=== PATIENT | male | born 1965 | race African-American/Black ===

== ENCOUNTER 2021-12-01 06:17 | Inpatient (IN) ==
[2021-12-01] MEDS ORDERED: ASPIRIN 325 MG TABLET PO STA (06:42)
[2021-12-01] MEDS ORDERED: FUROSEMIDE 40 MG/4 ML VIAL IV STA (06:42)
[2021-12-01] MEDS ORDERED: hydrALAZINE 20 MG/1 ML VIAL IV STA (06:42)
[2021-12-01 06:52] LABS: Basophils % 0.6 % (0.0-0.8); Eosinophils % 0.2 % (0.00-10.9); Hemoglobin 14.6 GM/DL (14.0-18.0); Immature Granulocytes % 0.6 %; Immature Granulocytes Absolute 0.03 #; Lymphocytes # 1.2 10*3/uL (1.4-4.0); Lymphocytes % 24.3 % (21.2-54.2); Mean Corpuscular HGB Conc 31.7 GM/DL (32-36); Mean Corpuscular Volume 94.1 FL (87-102); Mean Platelet Volume 10.4 FL (9.6-12.0); Monocytes % 5.9 % (1.7-12.7); Neutrophils % 68.4 % (38.7-73.9); Platelet Count 173 T/CUMM (130-400); Red Blood Count 4.89 MC/CUMM (3.8-5.5); Red Cell Distribution Width 15.3 % (9.3-17.3); White Blood Count 4.9 T/CUMM (4-12)
[2021-12-01 07:19] LABS: Albumin 2.9 G/DL (3.4-5.0); Bilirubin,Total 0.7 MG/DL (0.20-1.00); Calcium 8.4 MG/DL (8.5-10.1); Total Protein 6.5 G/DL (6.4-8.2)
[2021-12-01 07:51] LABS: Barbiturates Screen,Urine Negative (Negative); Benzodiazepines Screen,Urine Negative (Negative); Cannabinoid Screen,Urine Negative (Negative); Opiate Screen,Urine Negative (Negative); Phencyclidine Screen,Urine Negative (Negative)
[2021-12-01] MEDS ORDERED: DEXTROSE 10% 250 ML BAG IV PRN (09:29)
[2021-12-01] MEDS ORDERED: GLUCAGON 1 MG VIAL IM PRN (09:29)
[2021-12-01] MEDS ORDERED: ONDANSETRON 4 MG/2 ML VIAL IV PRN (09:29)
[2021-12-01] MEDS: ENOXAPARIN 40 MG/0.4 ML SYRINGE SUBCUT SCH (09:58)
[2021-12-01] MEDS ORDERED: lisinopriL 10 MG TABLET PO SCH (10:00)
[2021-12-01] MEDS: carvediloL 3.125 MG TABLET PO SCH ×2 (11:15→21:10)
[2021-12-01] MEDS: FUROSEMIDE 40 MG/4 ML VIAL IV SCH (17:27)
[2021-12-01] MEDS: LOSARTAN 25 MG TABLET PO SCH (21:10)
[2021-12-01] MEDS: ACETAMINOPHEN 325 MG TABLET PO PRN (22:09)
[2021-12-02] MEDS: FUROSEMIDE 40 MG/4 ML VIAL IV SCH ×2 (05:11→17:51)
[2021-12-02 05:13] LABS: Calcium 7.9 MG/DL (8.5-10.1); Osmolality,Calculated 283.3 MOS/KG (273-304); Potassium 3.2 MMOL/L (3.5-5.1)
[2021-12-02] MEDS ORDERED: POTASSIUM CHLORIDE 20 MEQ TABLET PO ONE (07:08)
[2021-12-02] MEDS: LOSARTAN 25 MG TABLET PO SCH ×2 (09:43→20:25)
[2021-12-02] MEDS: carvediloL 6.25 MG TABLET PO SCH ×2 (09:44→20:25)
[2021-12-02] MEDS: ENOXAPARIN 40 MG/0.4 ML SYRINGE SUBCUT SCH (09:45)
[2021-12-02] MEDS ORDERED: LACTULOSE 20 GM/30 ML UDCUP PO ONE (10:36)
[2021-12-02] MEDS ORDERED: metOLazone 5 MG TABLET PO SCH (11:00)
[2021-12-02] MEDS: DOCUSATE SODIUM 100 MG CAPSULE PO SCH ×2 (11:18→20:25)
[2021-12-02] MEDS: POLYETHYLENE GLYCOL POWDER 17 GM PACK PO SCH ×2 (11:19→20:25)
[2021-12-02] MEDS: EPLERENONE 25 MG TABLET PO SCH (17:51)
[2021-12-02] MEDS: SERTRALINE 50 MG TABLET PO SCH (20:25)
[2021-12-03] MEDS: FUROSEMIDE 40 MG/4 ML VIAL IV SCH ×2 (03:53→18:29)
[2021-12-03 05:24] LABS: Basophils % 0.5 % (0.0-0.8); Eosinophils # 0.1 10*3/uL (0.0-0.87); Eosinophils % 1.4 % (0.00-10.9); Hematocrit 46.3 VOL% (42.0-52.0); Hemoglobin 14.8 GM/DL (14.0-18.0); Immature Granulocytes % 0.2 %; Immature Granulocytes Absolute 0.01 #; Lymphocytes % 23.3 % (21.2-54.2); Mean Corpuscular Volume 94.3 FL (87-102); Mean Platelet Volume 10.9 FL (9.6-12.0); Monocytes % 14.2 % (1.7-12.7); Neutrophils % 60.4 % (38.7-73.9); Platelet Count 184 T/CUMM (130-400); Red Blood Count 4.91 MC/CUMM (3.8-5.5); Red Cell Distribution Width 14.9 % (9.3-17.3); White Blood Count 4.4 T/CUMM (4-12)
[2021-12-03 05:49] LABS: Calcium 8.7 MG/DL (8.5-10.1); Osmolality,Calculated 275.7 MOS/KG (273-304)
[2021-12-03] MEDS: EPLERENONE 25 MG TABLET PO SCH (09:59)
[2021-12-03] MEDS: DOCUSATE SODIUM 100 MG CAPSULE PO SCH ×2 (09:59→21:15)
[2021-12-03] MEDS: ACETAMINOPHEN 325 MG TABLET PO PRN (10:01)
[2021-12-03] MEDS: ENOXAPARIN 40 MG/0.4 ML SYRINGE SUBCUT SCH (10:23)
[2021-12-03] MEDS: POLYETHYLENE GLYCOL POWDER 17 GM PACK PO SCH ×2 (10:23→21:15)
[2021-12-03] MEDS: LOSARTAN 25 MG TABLET PO SCH (21:15)
[2021-12-03] MEDS: SERTRALINE 50 MG TABLET PO SCH (21:15)
[2021-12-04 04:26] LABS: Basophils % 0.4 % (0.0-0.8); Eosinophils # 0.1 10*3/uL (0.0-0.87); Eosinophils % 1.3 % (0.00-10.9); Immature Granulocytes % 0.2 %; Immature Granulocytes Absolute 0.01 #; Lymphocytes # 1.2 10*3/uL (1.4-4.0); Lymphocytes % 27.2 % (21.2-54.2); Mean Corpuscular HGB Conc 31.9 GM/DL (32-36); Mean Corpuscular Volume 92.9 FL (87-102); Mean Platelet Volume 10.8 FL (9.6-12.0); Monocytes % 12.4 % (1.7-12.7); Neutrophils % 58.5 % (38.7-73.9); Platelet Count 209 T/CUMM (130-400); Red Blood Count 5.06 MC/CUMM (3.8-5.5); Red Cell Distribution Width 14.7 % (9.3-17.3); White Blood Count 4.5 T/CUMM (4-12)
[2021-12-04 04:51] LABS: Osmolality,Calculated 276.8 MOS/KG (273-304)
[2021-12-04] MEDS: FUROSEMIDE 40 MG/4 ML VIAL IV SCH (04:55)
[2021-12-04] MEDS: POLYETHYLENE GLYCOL POWDER 17 GM PACK PO SCH (08:34)
[2021-12-04] MEDS: ENOXAPARIN 40 MG/0.4 ML SYRINGE SUBCUT SCH (08:35)
[2021-12-04] MEDS: DOCUSATE SODIUM 100 MG CAPSULE PO SCH (08:35)
[2021-12-04] MEDS: EPLERENONE 25 MG TABLET PO SCH (08:35)
[2021-12-04] MEDS ORDERED: SACUBITRIL/VALSARTAN 49-51 MG TABLET PO SCH (09:00)
[2021-12-04 10:22] VITALS: BP 100/69
== END 2021-12-04 13:30 | disposition home or self-care (01) | DRG 291 ==
LOC: N.TELES 06:17 → N.ED 06:17 → SUATTDRO 09:29 → N.TELES 12:48 → SUATTDRO 12-02 16:00
PROVIDERS: ADMIT Internal Medicine; ATTEND Internal Medicine

== ENCOUNTER 2022-03-06 07:45 | Inpatient (IN) ==
[2022-03-06] MEDS ORDERED: FUROSEMIDE 40 MG/4 ML VIAL IV STA (08:07)
[2022-03-06] MEDS ORDERED: ASPIRIN 325 MG TABLET PO STA (08:07)
[2022-03-06 08:22] LABS: Basophils % 0.7 % (0.0-0.8); Eosinophils % 0.5 % (0.00-10.9); Hematocrit 48.8 VOL% (42.0-52.0); Hemoglobin 15.6 GM/DL (14.0-18.0); Immature Granulocytes % 0.2 %; Immature Granulocytes Absolute 0.01 #; Lymphocytes # 0.9 10*3/uL (1.4-4.0); Mean Corpuscular Volume 95.9 FL (87-102); Mean Platelet Volume 11.3 FL (9.6-12.0); Monocytes # 0.2 10*3/uL (0.11-0.8); Monocytes % 5.3 % (1.7-12.7); Neutrophils % 71.3 % (38.7-73.9); Platelet Count 196 T/CUMM (130-400); Red Blood Count 5.09 MC/CUMM (3.8-5.5); Red Cell Distribution Width 16.2 % (9.3-17.3); White Blood Count 4.2 T/CUMM (4-12)
[2022-03-06 08:32] LABS: INR 1.1; PT Patient Result 12.3 SECS (10.5-12.0); Partial Thromboplastin Time 27.5 SECS (23.7-32.9)
[2022-03-06 08:49] LABS: Albumin 3.2 G/DL (3.4-5.0); Bilirubin,Total 0.8 MG/DL (0.20-1.00); Calcium 8.9 MG/DL (8.5-10.1); Osmolality,Calculated 287.8 MOS/KG (273-304); Total Protein 6.4 G/DL (6.4-8.2)
[2022-03-06 09:19] LABS: Barbiturates Screen,Urine Negative (Negative); Benzodiazepines Screen,Urine Negative (Negative); Cannabinoid Screen,Urine Negative (Negative); Opiate Screen,Urine Negative (Negative); Phencyclidine Screen,Urine Negative (Negative)
[2022-03-06] MEDS ORDERED: ONDANSETRON 4 MG/2 ML VIAL IV PRN (09:42)
[2022-03-06] MEDS ORDERED: ACETAMINOPHEN 325 MG TABLET PO PRN (09:42)
[2022-03-06] MEDS ORDERED: GLUCAGON 1 MG VIAL IM PRN (09:42)
[2022-03-06] MEDS ORDERED: hydrALAZINE 20 MG/1 ML VIAL IV PRN (09:42)
[2022-03-06] MEDS ORDERED: DEXTROSE 10% 250 ML BAG IV PRN (09:42)
[2022-03-06] MEDS: ENOXAPARIN 40 MG/0.4 ML SYRINGE SUBCUT SCH (10:03)
[2022-03-06 11:07] LABS: Risk Ratio 3.37; Thyroid Stimulating Hormone 3.06 uIU/ml (0.358-3.74)
[2022-03-06] MEDS: SACUBITRIL/VALSARTAN 49-51 MG TABLET PO SCH ×2 (12:35→20:20)
[2022-03-06] MEDS: carvediloL 6.25 MG TABLET PO SCH (20:20)
[2022-03-07 05:21] LABS: Basophils % 0.8 % (0.0-0.8); Eosinophils # 0.1 10*3/uL (0.0-0.87); Eosinophils % 1.4 % (0.00-10.9); Hematocrit 46.7 VOL% (42.0-52.0); Hemoglobin 15.1 GM/DL (14.0-18.0); Immature Granulocytes % 0.3 %; Immature Granulocytes Absolute 0.01 #; Lymphocytes # 0.9 10*3/uL (1.4-4.0); Lymphocytes % 24.7 % (21.2-54.2); Mean Corpuscular HGB Conc 32.3 GM/DL (32-36); Mean Corpuscular Volume 93.2 FL (87-102); Mean Platelet Volume 11.2 FL (9.6-12.0); Monocytes # 0.3 10*3/uL (0.11-0.8); Monocytes % 7.6 % (1.7-12.7); Neutrophils % 65.2 % (38.7-73.9); Platelet Count 176 T/CUMM (130-400); Red Blood Count 5.01 MC/CUMM (3.8-5.5); Red Cell Distribution Width 15.9 % (9.3-17.3); White Blood Count 3.7 T/CUMM (4-12)
[2022-03-07 05:39] LABS: Calcium 8.3 MG/DL (8.5-10.1); Osmolality,Calculated 287.8 MOS/KG (273-304); Potassium 3.9 MMOL/L (3.5-5.1)
[2022-03-07] MEDS ORDERED: METHOCARBAMOL 750 MG TABLET PO PRN (08:45)
[2022-03-07] MEDS ORDERED: DICYCLOMINE 10 MG CAPSULE PO PRN (08:45)
[2022-03-07] MEDS ORDERED: NICOTINE 14 MG/24 HR PATCH TRANSDERM PRN (08:53)
[2022-03-07] MEDS ORDERED: PANTOPRAZOLE 40 MG TABLET PO SCH (09:00)
[2022-03-07] MEDS: FUROSEMIDE 40 MG/4 ML VIAL IV SCH ×2 (10:10→17:14)
[2022-03-07] MEDS: ASPIRIN EC 81 MG TABLET PO SCH (10:10)
[2022-03-07] MEDS: DAPAGLIFLOZIN 10 MG TABLET PO SCH (10:10)
[2022-03-07] MEDS: LORazepam 1 MG TABLET PO SCH ×4 (10:11→20:40)
[2022-03-07] MEDS: FOLIC ACID 1 MG TABLET PO SCH (10:11)
[2022-03-07] MEDS: MULTIVITAMIN (CENTRUM) TABLET PO SCH (10:11)
[2022-03-07] MEDS: SACUBITRIL/VALSARTAN 49-51 MG TABLET PO SCH ×2 (10:11→20:40)
[2022-03-07] MEDS: THIAMINE 100 MG TABLET PO SCH (10:11)
[2022-03-07] MEDS: carvediloL 6.25 MG TABLET PO SCH ×2 (10:11→20:40)
[2022-03-07] MEDS: ENOXAPARIN 40 MG/0.4 ML SYRINGE SUBCUT SCH (10:12)
[2022-03-07] MEDS: ATORVASTATIN 40 MG TABLET PO SCH (20:40)
[2022-03-08] MEDS: LORazepam 1 MG TABLET PO SCH ×3 (01:35→08:58)
[2022-03-08 05:11] LABS: Basophils % 0.6 % (0.0-0.8); Eosinophils # 0.1 10*3/uL (0.0-0.87); Eosinophils % 2.1 % (0.00-10.9); Hematocrit 48.9 VOL% (42.0-52.0); Hemoglobin 15.8 GM/DL (14.0-18.0); Lymphocytes # 0.8 10*3/uL (1.4-4.0); Lymphocytes % 23.9 % (21.2-54.2); Mean Corpuscular HGB Conc 32.3 GM/DL (32-36); Mean Corpuscular Volume 91.7 FL (87-102); Mean Platelet Volume 11.3 FL (9.6-12.0); Monocytes # 0.4 10*3/uL (0.11-0.8); Monocytes % 10.7 % (1.7-12.7); Neutrophils % 62.7 % (38.7-73.9); Platelet Count 191 T/CUMM (130-400); Red Blood Count 5.33 MC/CUMM (3.8-5.5); Red Cell Distribution Width 15.6 % (9.3-17.3); White Blood Count 3.4 T/CUMM (4-12)
[2022-03-08 05:33] LABS: Calcium 8.6 MG/DL (8.5-10.1); Osmolality,Calculated 280.4 MOS/KG (273-304); Potassium 2.8 MMOL/L (3.5-5.1)
[2022-03-08] MEDS ORDERED: POTASSIUM CHLORIDE 20 MEQ TABLET PO PRN (05:45)
[2022-03-08] MEDS ORDERED: POTASSIUM CHLORIDE 20 MEQ TABLET PO ONE (06:55)
[2022-03-08] MEDS: ASPIRIN EC 81 MG TABLET PO SCH (08:58)
[2022-03-08] MEDS: MULTIVITAMIN (CENTRUM) TABLET PO SCH (08:58)
[2022-03-08] MEDS: THIAMINE 100 MG TABLET PO SCH (08:58)
[2022-03-08] MEDS: FOLIC ACID 1 MG TABLET PO SCH (08:58)
[2022-03-08] MEDS: SACUBITRIL/VALSARTAN 49-51 MG TABLET PO SCH ×2 (08:58→20:00)
[2022-03-08] MEDS: carvediloL 6.25 MG TABLET PO SCH ×2 (08:59→20:00)
[2022-03-08] MEDS: FUROSEMIDE 40 MG TABLET PO SCH ×2 (08:59→17:58)
[2022-03-08] MEDS: DAPAGLIFLOZIN 10 MG TABLET PO SCH (08:59)
[2022-03-08] MEDS: ENOXAPARIN 40 MG/0.4 ML SYRINGE SUBCUT SCH (09:00)
[2022-03-08] MEDS ORDERED: SPIRONOLACTONE 25 MG TABLET PO SCH (09:00)
[2022-03-08] MEDS ORDERED: LORazepam 1 MG TABLET PO SCH (11:00)
[2022-03-08] MEDS ORDERED: LORazepam 0.5 MG TABLET PO SCH (11:00)
[2022-03-08] MEDS: POTASSIUM CHLORIDE 20 MEQ TABLET PO SCH ×2 (12:42→20:00)
[2022-03-08] MEDS ORDERED: LORazepam 1 MG TABLET PO PRN (15:22)
[2022-03-08] MEDS: ATORVASTATIN 40 MG TABLET PO SCH (20:00)
[2022-03-09 05:38] LABS: Basophils % 0.6 % (0.0-0.8); Eosinophils % 1.2 % (0.00-10.9); Hematocrit 52.9 VOL% (42.0-52.0); Hemoglobin 17.2 GM/DL (14.0-18.0); Immature Granulocytes % 0.3 %; Immature Granulocytes Absolute 0.01 #; Lymphocytes % 28.3 % (21.2-54.2); Mean Corpuscular HGB Conc 32.5 GM/DL (32-36); Mean Corpuscular Volume 92.5 FL (87-102); Mean Platelet Volume 11.1 FL (9.6-12.0); Monocytes # 0.4 10*3/uL (0.11-0.8); Neutrophils % 57.6 % (38.7-73.9); Platelet Count 200 T/CUMM (130-400); Red Blood Count 5.72 MC/CUMM (3.8-5.5); Red Cell Distribution Width 15.7 % (9.3-17.3); White Blood Count 3.4 T/CUMM (4-12)
[2022-03-09 06:04] LABS: Calcium 8.7 MG/DL (8.5-10.1); Osmolality,Calculated 281.3 MOS/KG (273-304); Potassium 4.4 MMOL/L (3.5-5.1)
[2022-03-09] MEDS ORDERED: SPIRONOLACTONE 25 MG TABLET PO SCH (09:00)
[2022-03-09] MEDS ORDERED: carvediloL 3.125 MG TABLET PO SCH (09:00)
[2022-03-09] MEDS: ASPIRIN EC 81 MG TABLET PO SCH (09:15)
[2022-03-09] MEDS: SACUBITRIL/VALSARTAN 49-51 MG TABLET PO SCH (09:17)
[2022-03-09] MEDS: POTASSIUM CHLORIDE 20 MEQ TABLET PO SCH (09:17)
[2022-03-09] MEDS: MULTIVITAMIN (CENTRUM) TABLET PO SCH (09:17)
[2022-03-09] MEDS: THIAMINE 100 MG TABLET PO SCH (09:17)
[2022-03-09] MEDS: DAPAGLIFLOZIN 10 MG TABLET PO SCH (09:17)
[2022-03-09] MEDS: FUROSEMIDE 40 MG TABLET PO SCH (09:18)
[2022-03-09] MEDS: FOLIC ACID 1 MG TABLET PO SCH (09:18)
[2022-03-09 11:21] VITALS: BP 97/76
[2022-03-09] MEDS: ENOXAPARIN 40 MG/0.4 ML SYRINGE SUBCUT SCH (12:09)
== END 2022-03-09 15:34 | disposition home or self-care (01) | DRG 291 ==
LOC: N.ED 07:45 → SUATTDRO 09:41 → N.EDINP 09:41 → N.TELES 10:58
PROVIDERS: ADMIT Internal Medicine; ATTEND Internal Medicine

== ENCOUNTER 2022-04-12 15:00 | Inpatient (IN) ==
[2022-04-12 15:45] LABS: Basophils % 0.3 % (0.0-0.8); Eosinophils % 0.2 % (0.00-10.9); Hematocrit 46.2 VOL% (42.0-52.0); Hemoglobin 14.8 GM/DL (14.0-18.0); Immature Granulocytes % 0.2 %; Immature Granulocytes Absolute 0.01 #; Lymphocytes # 0.6 10*3/uL (1.4-4.0); Lymphocytes % 9.3 % (21.2-54.2); Mean Corpuscular Volume 94.9 FL (87-102); Monocytes # 0.3 10*3/uL (0.11-0.8); Platelet Count 141 T/CUMM (130-400); Red Blood Count 4.87 MC/CUMM (3.8-5.5); Red Cell Distribution Width 14.7 % (9.3-17.3); White Blood Count 6.2 T/CUMM (4-12)
[2022-04-12] MEDS ORDERED: FUROSEMIDE 40 MG/4 ML VIAL IV STA (16:07)
[2022-04-12 16:15] LABS: Albumin 3.6 G/DL (3.4-5.0); Bilirubin,Total 1.2 MG/DL (0.20-1.00); Calcium 8.8 MG/DL (8.5-10.1); Osmolality,Calculated 280.4 MOS/KG (273-304); Potassium 4.9 MMOL/L (3.5-5.1); Total Protein 7.3 G/DL (6.4-8.2)
[2022-04-12 16:25] LABS: Hypochromia Slight; Lymphocytes 7 % (20-55); Platelet Estimate Normal; Total Cells Counted 100
[2022-04-12 17:10] LABS: Mucus,Urine Few /LPF (Occasional); RBC,Urine 2 /HPF (0-4); Squamous Epithelial Cell,Urine Occasional /HPF (0-10)
[2022-04-12 17:14] LABS: Urine Appearance Clear (Clear); Urine Color Yellow (Yellow); Urine pH 5.5 (4.5-8.0)
[2022-04-12 17:15] LABS: Bilirubin,Urine Moderate mg/dL (Negative); Blood, Urine Negative (Negative); Glucose,Urine (UA) Negative (Negative); Ketones,Urine Trace mg/dL (Negative); Nitrite,Urine Negative (Negative); Protein,Urine 100 mg/dL (Negative); Urine Specific Gravity 1.025 (1.001-1.035); Urine Urobilinogen 0.2 eU/dL (<2.0)
[2022-04-12 17:24] LABS: Barbiturates Screen,Urine Negative (Negative); Benzodiazepines Screen,Urine Negative (Negative); Cannabinoid Screen,Urine Positive (Negative); Opiate Screen,Urine Negative (Negative); Phencyclidine Screen,Urine Negative (Negative)
[2022-04-12] MEDS ORDERED: ALBUTEROL/IPRATROPIUM 3 ML NEB RESP TX PRN (17:32)
[2022-04-12] MEDS ORDERED: ONDANSETRON 4 MG/2 ML VIAL IV PRN (17:32)
[2022-04-12] MEDS ORDERED: GLUCAGON 1 MG VIAL IM PRN (17:32)
[2022-04-12] MEDS ORDERED: ACETAMINOPHEN 325 MG TABLET PO PRN (17:32)
[2022-04-12] MEDS ORDERED: hydrALAZINE 20 MG/1 ML VIAL IV PRN (17:32)
[2022-04-12] MEDS ORDERED: MAGNESIUM SULF RIDER 2 GM/50 ML PREMIX IV PRN (17:38)
[2022-04-12] MEDS ORDERED: MAGNESIUM SULF RIDER 4 GM/100 ML PREMIX IV PRN (17:38)
[2022-04-12] MEDS ORDERED: DEXTROSE 10% 250 ML BAG IV PRN (17:58)
[2022-04-12] MEDS: ALBUTEROL 2.5 MG/3 ML NEB RESP TX SCH (19:19)
[2022-04-12] MEDS: ATORVASTATIN 40 MG TABLET PO SCH (20:58)
[2022-04-12] MEDS: ENOXAPARIN 40 MG/0.4 ML SYRINGE SUBCUT SCH (20:58)
[2022-04-12] MEDS: SACUBITRIL/VALSARTAN 49-51 MG TABLET PO SCH (20:58)
[2022-04-12] MEDS: carvediloL 6.25 MG TABLET PO SCH (20:58)
[2022-04-12 22:28] LABS: Risk Ratio 1.76; Thyroid Stimulating Hormone 0.941 uIU/ml (0.358-3.74); VLDL Cholesterol 16.6 MG/DL
[2022-04-13] MEDS: ALBUTEROL 2.5 MG/3 ML NEB RESP TX SCH ×4 (00:22→19:20)
[2022-04-13 04:19] LABS: Basophils % 0.3 % (0.0-0.8); Hematocrit 43.4 VOL% (42.0-52.0); Hemoglobin 14.3 GM/DL (14.0-18.0); Immature Granulocytes % 0.3 %; Immature Granulocytes Absolute 0.02 #; Lymphocytes # 0.7 10*3/uL (1.4-4.0); Lymphocytes % 10.7 % (21.2-54.2); Mean Corpuscular HGB Conc 32.9 GM/DL (32-36); Mean Corpuscular Volume 92.1 FL (87-102); Mean Platelet Volume 12.1 FL (9.6-12.0); Monocytes # 0.3 10*3/uL (0.11-0.8); Monocytes % 4.4 % (1.7-12.7); Neutrophils % 84.3 % (38.7-73.9); Platelet Count 136 T/CUMM (130-400); Red Blood Count 4.71 MC/CUMM (3.8-5.5); Red Cell Distribution Width 14.6 % (9.3-17.3); White Blood Count 6.3 T/CUMM (4-12)
[2022-04-13 04:25] LABS: Calcium 8.4 MG/DL (8.5-10.1); Osmolality,Calculated 280.4 MOS/KG (273-304); Potassium 3.7 MMOL/L (3.5-5.1)
[2022-04-13 04:56] LABS: Platelet Estimate Adequate
[2022-04-13] MEDS: FUROSEMIDE 40 MG/4 ML VIAL IV SCH ×2 (08:36→16:56)
[2022-04-13] MEDS: SPIRONOLACTONE 25 MG TABLET PO SCH (09:13)
[2022-04-13] MEDS: DAPAGLIFLOZIN 10 MG TABLET PO SCH (09:13)
[2022-04-13] MEDS: MULTIVITAMIN (CENTRUM) TABLET PO SCH (09:13)
[2022-04-13] MEDS: SACUBITRIL/VALSARTAN 49-51 MG TABLET PO SCH ×2 (09:13→21:11)
[2022-04-13] MEDS: NICOTINE 21 MG/24 HR PATCH TRANSDERM SCH (09:13)
[2022-04-13] MEDS: ASPIRIN EC 81 MG TABLET PO SCH (09:13)
[2022-04-13] MEDS: carvediloL 6.25 MG TABLET PO SCH ×2 (09:13→21:11)
[2022-04-13] MEDS: FOLIC ACID 1 MG TABLET PO SCH (09:14)
[2022-04-13] MEDS: THIAMINE 100 MG TABLET PO SCH (09:14)
[2022-04-13] MEDS: MULTIVITAMIN (OCUVITE) TABLET PO SCH (09:14)
[2022-04-13] MEDS: PANTOPRAZOLE 40 MG TABLET PO SCH (09:14)
[2022-04-13] MEDS: ENOXAPARIN 40 MG/0.4 ML SYRINGE SUBCUT SCH (21:11)
[2022-04-13] MEDS: ATORVASTATIN 40 MG TABLET PO SCH (21:11)
[2022-04-14] MEDS: ALBUTEROL 2.5 MG/3 ML NEB RESP TX SCH ×4 (00:24→20:12)
[2022-04-14 05:25] LABS: Basophils % 0.4 % (0.0-0.8); Eosinophils # 0.1 10*3/uL (0.0-0.87); Eosinophils % 1.8 % (0.00-10.9); Hemoglobin 15.2 GM/DL (14.0-18.0); Immature Granulocytes % 0.4 %; Immature Granulocytes Absolute 0.01 #; Lymphocytes % 35.6 % (21.2-54.2); Mean Corpuscular Volume 91.6 FL (87-102); Mean Platelet Volume 11.6 FL (9.6-12.0); Monocytes # 0.2 10*3/uL (0.11-0.8); Monocytes % 7.2 % (1.7-12.7); Neutrophils % 54.6 % (38.7-73.9); Platelet Count 125 T/CUMM (130-400); Red Blood Count 5.02 MC/CUMM (3.8-5.5); Red Cell Distribution Width 14.3 % (9.3-17.3); White Blood Count 2.8 T/CUMM (4-12)
[2022-04-14 05:42] LABS: Platelet Estimate Decreased
[2022-04-14 05:51] LABS: Calcium 8.1 MG/DL (8.5-10.1); Osmolality,Calculated 281.4 MOS/KG (273-304); Potassium 3.1 MMOL/L (3.5-5.1)
[2022-04-14] MEDS: FUROSEMIDE 40 MG/4 ML VIAL IV SCH (09:43)
[2022-04-14] MEDS: SPIRONOLACTONE 25 MG TABLET PO SCH (11:02)
[2022-04-14] MEDS: carvediloL 6.25 MG TABLET PO SCH (11:02)
[2022-04-14] MEDS: SACUBITRIL/VALSARTAN 49-51 MG TABLET PO SCH (11:02)
[2022-04-14] MEDS: NICOTINE 21 MG/24 HR PATCH TRANSDERM SCH (11:03)
[2022-04-14] MEDS: THIAMINE 100 MG TABLET PO SCH (11:21)
[2022-04-14] MEDS: DAPAGLIFLOZIN 10 MG TABLET PO SCH (11:21)
[2022-04-14] MEDS: PANTOPRAZOLE 40 MG TABLET PO SCH (11:22)
[2022-04-14] MEDS: FOLIC ACID 1 MG TABLET PO SCH (11:22)
[2022-04-14] MEDS: MULTIVITAMIN (CENTRUM) TABLET PO SCH (11:22)
[2022-04-14] MEDS: ASPIRIN EC 81 MG TABLET PO SCH (11:22)
[2022-04-14] MEDS: MULTIVITAMIN (OCUVITE) TABLET PO SCH (11:23)
[2022-04-14] MEDS: POTASSIUM CHLORIDE 20 MEQ TABLET PO PRN ×4 (14:21→22:10)
[2022-04-14] MEDS: ATORVASTATIN 40 MG TABLET PO SCH (21:00)
[2022-04-14] MEDS: carvediloL 3.125 MG TABLET PO SCH (21:00)
[2022-04-14] MEDS: ENOXAPARIN 40 MG/0.4 ML SYRINGE SUBCUT SCH (21:17)
[2022-04-15] MEDS: ALBUTEROL 2.5 MG/3 ML NEB RESP TX SCH ×4 (01:46→19:23)
[2022-04-15 05:58] LABS: Basophils % 0.3 % (0.0-0.8); Eosinophils # 0.1 10*3/uL (0.0-0.87); Eosinophils % 2.1 % (0.00-10.9); Hematocrit 45.2 VOL% (42.0-52.0); Hemoglobin 14.6 GM/DL (14.0-18.0); Immature Granulocytes % 0.3 %; Immature Granulocytes Absolute 0.01 #; Lymphocytes % 34.7 % (21.2-54.2); Mean Corpuscular HGB Conc 32.3 GM/DL (32-36); Mean Corpuscular Volume 93.2 FL (87-102); Mean Platelet Volume 12.1 FL (9.6-12.0); Monocytes # 0.3 10*3/uL (0.11-0.8); Monocytes % 10.1 % (1.7-12.7); Neutrophils % 52.5 % (38.7-73.9); Platelet Count 136 T/CUMM (130-400); Red Blood Count 4.85 MC/CUMM (3.8-5.5); Red Cell Distribution Width 14.5 % (9.3-17.3); White Blood Count 2.9 T/CUMM (4-12)
[2022-04-15 06:09] LABS: Albumin 2.3 G/DL (3.4-5.0); Bilirubin,Total 0.4 MG/DL (0.20-1.00); Calcium 8.2 MG/DL (8.5-10.1); Osmolality,Calculated 282.3 MOS/KG (273-304); Potassium 4.1 MMOL/L (3.5-5.1); Total Protein 5.7 G/DL (6.4-8.2)
[2022-04-15] MEDS ORDERED: FUROSEMIDE 40 MG/4 ML VIAL IV SCH (09:00)
[2022-04-15] MEDS: MULTIVITAMIN (CENTRUM) TABLET PO SCH (09:59)
[2022-04-15] MEDS: DAPAGLIFLOZIN 10 MG TABLET PO SCH (10:00)
[2022-04-15] MEDS: MULTIVITAMIN (OCUVITE) TABLET PO SCH (10:00)
[2022-04-15] MEDS: ASPIRIN EC 81 MG TABLET PO SCH (10:00)
[2022-04-15] MEDS: PANTOPRAZOLE 40 MG TABLET PO SCH (10:00)
[2022-04-15] MEDS: FOLIC ACID 1 MG TABLET PO SCH (10:01)
[2022-04-15] MEDS: THIAMINE 100 MG TABLET PO SCH (10:01)
[2022-04-15] MEDS: carvediloL 3.125 MG TABLET PO SCH ×2 (10:04→20:41)
[2022-04-15] MEDS: NICOTINE 21 MG/24 HR PATCH TRANSDERM SCH (10:04)
[2022-04-15] MEDS: FUROSEMIDE 40 MG TABLET PO SCH (10:05)
[2022-04-15] MEDS: VALSARTAN 80 MG TABLET PO SCH (12:49)
[2022-04-15] MEDS: ENOXAPARIN 40 MG/0.4 ML SYRINGE SUBCUT SCH (20:40)
[2022-04-15] MEDS: ATORVASTATIN 40 MG TABLET PO SCH (20:41)
[2022-04-16] MEDS: ALBUTEROL 2.5 MG/3 ML NEB RESP TX SCH ×2 (00:34→09:31)
[2022-04-16] MEDS: VALSARTAN 80 MG TABLET PO SCH (08:48)
[2022-04-16] MEDS: carvediloL 3.125 MG TABLET PO SCH (08:48)
[2022-04-16] MEDS: ASPIRIN EC 81 MG TABLET PO SCH (08:48)
[2022-04-16] MEDS: MULTIVITAMIN (CENTRUM) TABLET PO SCH (08:48)
[2022-04-16] MEDS: FUROSEMIDE 40 MG TABLET PO SCH (08:48)
[2022-04-16] MEDS: DAPAGLIFLOZIN 10 MG TABLET PO SCH (08:48)
[2022-04-16] MEDS: FOLIC ACID 1 MG TABLET PO SCH (08:48)
[2022-04-16] MEDS: PANTOPRAZOLE 40 MG TABLET PO SCH (08:49)
[2022-04-16] MEDS: THIAMINE 100 MG TABLET PO SCH (08:49)
[2022-04-16] MEDS: NICOTINE 21 MG/24 HR PATCH TRANSDERM SCH (08:49)
[2022-04-16 09:09] VITALS: BP 107/78
[2022-04-16 10:00] LABS: Calcium 8.7 MG/DL (8.5-10.1); Osmolality,Calculated 278.3 MOS/KG (273-304); Potassium 5.1 MMOL/L (3.5-5.1)
[2022-04-16] MEDS: MULTIVITAMIN (OCUVITE) TABLET PO SCH (10:07)
== END 2022-04-16 12:06 | disposition home or self-care (01) | DRG 291 ==
LOC: N.ED 15:00 → N.EDINP 15:00 → SUATTDRO 17:32 → N.TELEN 04-13 10:55
PROVIDERS: ADMIT Internal Medicine; ATTEND Internal Medicine Geriatric Medicine

== ENCOUNTER 2022-05-21 15:09 | Observation (INO) ==
[2022-05-21] MEDS ORDERED: ONDANSETRON 4 MG/2 ML VIAL IV STA (17:19)
[2022-05-21] MEDS ORDERED: FAMOTIDINE 20 MG/2 ML VIAL IV STA (17:19)
[2022-05-21] MEDS ORDERED: MORPHINE 2 MG/1 ML SYRINGE IV STA ×2 (17:19→19:34)
[2022-05-21 17:25] LABS: Basophils % 0.4 % (0.0-0.8); Eosinophils % 0.2 % (0.00-10.9); Hematocrit 49.2 VOL% (42.0-52.0); Immature Granulocytes % 0.2 %; Immature Granulocytes Absolute 0.01 #; Lymphocytes # 0.4 10*3/uL (1.4-4.0); Lymphocytes % 8.8 % (21.2-54.2); Mean Corpuscular HGB Conc 32.5 GM/DL (32-36); Mean Corpuscular Volume 96.7 FL (87-102); Mean Platelet Volume 10.7 FL (9.6-12.0); Monocytes # 0.3 10*3/uL (0.11-0.8); Monocytes % 6.1 % (1.7-12.7); Neutrophils % 84.3 % (38.7-73.9); Platelet Count 186 T/CUMM (130-400); Red Blood Count 5.09 MC/CUMM (3.8-5.5); Red Cell Distribution Width 15.4 % (9.3-17.3); White Blood Count 4.8 T/CUMM (4-12)
[2022-05-21 17:44] LABS: Albumin 3.5 G/DL (3.4-5.0); Bilirubin,Total 0.7 MG/DL (0.20-1.00); Calcium 9.2 MG/DL (8.5-10.1); Osmolality,Calculated 277.5 MOS/KG (273-304); Potassium 4.3 MMOL/L (3.5-5.1); Total Protein 7.6 G/DL (6.4-8.2)
[2022-05-21 20:40] LABS: Mucus,Urine Occasional /LPF (Occasional); RBC,Urine 1 /HPF (0-4)
[2022-05-21 20:44] LABS: Bilirubin,Urine Negative (Negative); Blood, Urine Negative (Negative); Glucose,Urine (UA) Negative (Negative); Ketones,Urine Trace mg/dL (Negative); Nitrite,Urine Negative (Negative); Protein,Urine Negative (Negative); Urine Appearance Clear (Clear); Urine Color Yellow (Yellow); Urine Specific Gravity 1.015 (1.001-1.035); Urine pH 6.5 (4.5-8.0)
[2022-05-21] MEDS ORDERED: SODIUM CHLORIDE 0.9% 1,000 ML IV STA (21:47)
[2022-05-21] MEDS ORDERED: ENOXAPARIN 80 MG/0.8 ML SYRINGE SUBCUT STA (22:14)
[2022-05-21] MEDS ORDERED: GLUCAGON 1 MG VIAL IM PRN (22:19)
[2022-05-21] MEDS ORDERED: diphenhydrAMINE CAP 25 MG CAPSULE PO PRN (22:19)
[2022-05-21] MEDS ORDERED: hydrALAZINE 20 MG/1 ML VIAL IV PRN (22:19)
[2022-05-21] MEDS ORDERED: ONDANSETRON 4 MG/2 ML VIAL IV PRN (22:19)
[2022-05-21] MEDS ORDERED: DEXTROSE 10% 250 ML BAG IV PRN (22:19)
[2022-05-21] MEDS ORDERED: ZALEPLON 5 MG CAPSULE PO PRN (22:19)
[2022-05-21] MEDS ORDERED: NICOTINE 21 MG/24 HR PATCH TRANSDERM PRN (22:19)
[2022-05-21] MEDS ORDERED: guaiFENesin/DM ER 600-30 MG TABLET PO PRN (22:19)
[2022-05-21 22:26] LABS: INR 1.1; PT Patient Result 11.7 SECS (10.1-12.1); Partial Thromboplastin Time 27.8 SECS (23.7-32.9)
[2022-05-22] MEDS: ALBUTEROL 2.5 MG/3 ML NEB RESP TX SCH ×4 (00:48→19:10)
[2022-05-22] MEDS: MORPHINE 2 MG/1 ML SYRINGE IV PRN ×2 (00:52→17:30)
[2022-05-22 05:29] LABS: Basophils % 0.2 % (0.0-0.8); Eosinophils % 0.2 % (0.00-10.9); Hematocrit 44.4 VOL% (42.0-52.0); Hemoglobin 14.1 GM/DL (14.0-18.0); Immature Granulocytes % 0.2 %; Immature Granulocytes Absolute 0.01 #; Lymphocytes # 0.7 10*3/uL (1.4-4.0); Lymphocytes % 12.7 % (21.2-54.2); Mean Corpuscular HGB Conc 31.8 GM/DL (32-36); Mean Corpuscular Volume 96.5 FL (87-102); Mean Platelet Volume 11.1 FL (9.6-12.0); Monocytes # 0.6 10*3/uL (0.11-0.8); Monocytes % 9.8 % (1.7-12.7); Neutrophils % 76.9 % (38.7-73.9); Platelet Count 198 T/CUMM (130-400); Red Cell Distribution Width 15.3 % (9.3-17.3); White Blood Count 5.6 T/CUMM (4-12)
[2022-05-22 05:33] LABS: Calcium 8.7 MG/DL (8.5-10.1); Osmolality,Calculated 275.5 MOS/KG (273-304); Potassium 3.4 MMOL/L (3.5-5.1)
[2022-05-22 05:35] LABS: INR 1.1; PT Patient Result 11.7 SECS (10.1-12.1); Partial Thromboplastin Time 32.4 SECS (23.7-32.9)
[2022-05-22] MEDS: POTASSIUM CHLORIDE 20 MEQ TABLET PO SCH (09:46)
[2022-05-22] MEDS: PANTOPRAZOLE 40 MG TABLET PO SCH (09:46)
[2022-05-22] MEDS: ASPIRIN EC 81 MG TABLET PO SCH (09:46)
[2022-05-22] MEDS: MULTIVITAMIN (CENTRUM) TABLET PO SCH (09:47)
[2022-05-22] MEDS: DAPAGLIFLOZIN 10 MG TABLET PO SCH (09:47)
[2022-05-22] MEDS: carvediloL 3.125 MG TABLET PO SCH ×2 (09:47→20:38)
[2022-05-22] MEDS: VALSARTAN 80 MG TABLET PO SCH (09:48)
[2022-05-22] MEDS: FUROSEMIDE 40 MG TABLET PO SCH (09:48)
[2022-05-22] MEDS: ENOXAPARIN 80 MG/0.8 ML SYRINGE SUBCUT SCH ×2 (09:48→21:44)
[2022-05-22 22:59] LABS: Barbiturates Screen,Urine Negative (Negative); Benzodiazepines Screen,Urine Negative (Negative); Cannabinoid Screen,Urine Positive (Negative); Opiate Screen,Urine Positive (Negative); Phencyclidine Screen,Urine Negative (Negative)
[2022-05-23] MEDS: ALBUTEROL 2.5 MG/3 ML NEB RESP TX SCH ×3 (00:10→14:15)
[2022-05-23] MEDS: MORPHINE 2 MG/1 ML SYRINGE IV PRN ×2 (02:54→09:09)
[2022-05-23 06:20] LABS: Basophils % 0.3 % (0.0-0.8); Eosinophils % 1.1 % (0.00-10.9); Hematocrit 42.8 VOL% (42.0-52.0); Hemoglobin 13.9 GM/DL (14.0-18.0); Immature Granulocytes % 0.3 %; Immature Granulocytes Absolute 0.01 #; Lymphocytes % 27.4 % (21.2-54.2); Mean Corpuscular HGB Conc 32.5 GM/DL (32-36); Mean Corpuscular Volume 95.1 FL (87-102); Mean Platelet Volume 10.9 FL (9.6-12.0); Monocytes # 0.3 10*3/uL (0.11-0.8); Monocytes % 9.4 % (1.7-12.7); Neutrophils % 61.5 % (38.7-73.9); Platelet Count 168 T/CUMM (130-400); Red Cell Distribution Width 15.4 % (9.3-17.3); White Blood Count 3.5 T/CUMM (4-12)
[2022-05-23 06:35] LABS: Calcium 8.3 MG/DL (8.5-10.1); Osmolality,Calculated 274.5 MOS/KG (273-304); Potassium 3.7 MMOL/L (3.5-5.1)
[2022-05-23] MEDS ORDERED: ENOXAPARIN 80 MG/0.8 ML SYRINGE SUBCUT SCH (09:00)
[2022-05-23] MEDS: carvediloL 3.125 MG TABLET PO SCH (09:05)
[2022-05-23] MEDS: DAPAGLIFLOZIN 10 MG TABLET PO SCH (09:05)
[2022-05-23] MEDS: VALSARTAN 80 MG TABLET PO SCH (09:06)
[2022-05-23] MEDS: FUROSEMIDE 40 MG TABLET PO SCH (09:06)
[2022-05-23] MEDS: POTASSIUM CHLORIDE 20 MEQ TABLET PO SCH (09:06)
[2022-05-23] MEDS: MULTIVITAMIN (CENTRUM) TABLET PO SCH (09:06)
[2022-05-23] MEDS: PANTOPRAZOLE 40 MG TABLET PO SCH (09:07)
[2022-05-23] MEDS: ASPIRIN EC 81 MG TABLET PO SCH (09:07)
[2022-05-23 09:28] LABS: Hemoglobin A1 (Alkaline) 97.8 % (96.5-98.5); Hemoglobin A2 (Alkaline) 2.2 % (1.5-3.5)
[2022-05-23 15:11] LABS: DRVVT Screen Ratio 0.82 ratio (<1.20); INR 1.1 (0.9-1.1)
[2022-05-23 16:23] VITALS: BP 120/85
[2022-05-24] MEDS ORDERED: VALSARTAN 80 MG TABLET PO SCH (09:00)
[2022-05-26 11:21] LABS: F5DNA Reviewed By SEE COMMENTS; Factor V Leiden (R506Q) Mutati Negative (Negative)
== END 2022-05-23 18:30 | disposition home or self-care (01) ==
LOC: N.ED 15:09 → N.5E 15:09 → SUATTDRO 22:19 → N.5E 23:26
PROVIDERS: ADMIT Internal Medicine; ATTEND Internal Medicine

== ENCOUNTER 2022-06-13 19:22 | Observation (INO) ==
[2022-06-13] MEDS ORDERED: ONDANSETRON 4 MG/2 ML VIAL IV STA (19:51)
[2022-06-13] MEDS ORDERED: ASPIRIN 325 MG TABLET PO STA (19:51)
[2022-06-13] MEDS ORDERED: NITROGLYCERIN 2% OINT 1 INCH/GM PACK TOP STA (19:51)
[2022-06-13] MEDS ORDERED: MORPHINE 2 MG/1 ML SYRINGE IV STA (19:51)
[2022-06-13] MEDS ORDERED: ALUM/MAG/SIMETH/LIDO VISC 1:1 30 ML BOTTLE PO STA (19:51)
[2022-06-13 19:54] LABS: Basophils % 0.4 % (0.0-0.8); Eosinophils # 0.1 10*3/uL (0.0-0.87); Eosinophils % 1.6 % (0.00-10.9); Hematocrit 44.3 VOL% (42.0-52.0); Hemoglobin 14.4 GM/DL (14.0-18.0); Immature Granulocytes % 0.2 %; Immature Granulocytes Absolute 0.01 #; Lymphocytes # 1.1 10*3/uL (1.4-4.0); Lymphocytes % 21.6 % (21.2-54.2); Mean Corpuscular HGB Conc 32.5 GM/DL (32-36); Mean Corpuscular Volume 95.1 FL (87-102); Mean Platelet Volume 10.7 FL (9.6-12.0); Monocytes # 0.6 10*3/uL (0.11-0.8); Monocytes % 11.8 % (1.7-12.7); Neutrophils % 64.4 % (38.7-73.9); Platelet Count 212 T/CUMM (130-400); Red Blood Count 4.66 MC/CUMM (3.8-5.5); White Blood Count 4.9 T/CUMM (4-12)
[2022-06-13 20:07] LABS: Amylase 68 U/L (25-115)
[2022-06-13 20:10] LABS: Lymphocytes 23 % (20-55); Platelet Estimate Normal; Total Cells Counted 100
[2022-06-13 20:13] LABS: Alanine Aminotransferase 27 U/L (16-61); Albumin 3.2 G/DL (3.4-5.0); Alkaline Phosphatase 95 U/L (45-117); Aspartate Amino Transferase 24 U/L (0-37); Bilirubin,Total < 0.39 MG/DL (0.20-1.00); Blood Urea Nitrogen 10 MG/DL (7-18); Calcium 8.9 MG/DL (8.5-10.1); Carbon Dioxide 30 MMOL/L (21-32); Chloride 105 MMOL/L (98-107); Glucose 114 MG/DL (74-106); Osmolality,Calculated 278.4 MOS/KG (273-304); Potassium 3.3 MMOL/L (3.5-5.1); Sodium 140 MMOL/L (136-145); Total Protein 7.1 G/DL (6.4-8.2)
[2022-06-13] MEDS ORDERED: POTASSIUM CHLORIDE 20 MEQ TABLET PO STA (20:51)
[2022-06-13] MEDS ORDERED: ENOXAPARIN 100 MG/ML SYRINGE SUBCUT STA (21:24)
[2022-06-13] MEDS ORDERED: ENOXAPARIN 80 MG/0.8 ML SYRINGE SUBCUT STA (21:25)
[2022-06-13] MEDS ORDERED: NITROGLYCERIN SL 0.4 MG TABLET SL PRN (21:56)
[2022-06-13] MEDS ORDERED: MORPHINE 2 MG/1 ML SYRINGE IV PRN (21:56)
[2022-06-13] MEDS ORDERED: ACETAMINOPHEN 325 MG TABLET PO PRN (21:56)
[2022-06-13] MEDS ORDERED: ONDANSETRON 4 MG/2 ML VIAL IV PRN (21:56)
[2022-06-13] MEDS ORDERED: FUROSEMIDE 40 MG/4 ML VIAL IV STA (22:01)
[2022-06-13 23:16] LABS: Mucus,Urine Occasional /LPF (Occasional); Urine Appearance Clear (Clear); Urine Color Yellow (Yellow)
[2022-06-13 23:17] LABS: Bilirubin,Urine Negative (Negative); Blood, Urine Negative (Negative); Glucose,Urine (UA) Negative (Negative); Ketones,Urine Negative (Negative); Nitrite,Urine Negative (Negative); Protein,Urine Negative (Negative); Urine Specific Gravity 1.015 (1.001-1.035); Urine Urobilinogen 0.2 eU/dL (<2.0)
[2022-06-13] MEDS ORDERED: THIAMINE INJ 100 MG, FOLIC ACID INJ 1 MG, MULTIVITAMIN INJ 10 ML in SODIUM CHLORIDE 0.9... IV ONE (23:28)
[2022-06-13 23:37] LABS: Barbiturates Screen,Urine Negative (Negative); Benzodiazepines Screen,Urine Negative (Negative); Cannabinoid Screen,Urine Positive (Negative); Opiate Screen,Urine Positive (Negative); Phencyclidine Screen,Urine Negative (Negative)
[2022-06-13] MEDS: LORazepam 1 MG TABLET PO SCH (23:57)
[2022-06-14] MEDS: LORazepam 1 MG TABLET PO SCH ×4 (04:25→12:17)
[2022-06-14 05:14] LABS: Basophils % 0.5 % (0.0-0.8); Eosinophils # 0.1 10*3/uL (0.0-0.87); Eosinophils % 1.8 % (0.00-10.9); Hematocrit 40.6 VOL% (42.0-52.0); Hemoglobin 13.2 GM/DL (14.0-18.0); Lymphocytes # 1.4 10*3/uL (1.4-4.0); Lymphocytes % 37.1 % (21.2-54.2); Mean Corpuscular HGB Conc 32.5 GM/DL (32-36); Mean Corpuscular Volume 96.7 FL (87-102); Mean Platelet Volume 11.1 FL (9.6-12.0); Monocytes # 0.6 10*3/uL (0.11-0.8); Monocytes % 14.6 % (1.7-12.7); Platelet Count 190 T/CUMM (130-400); Red Cell Distribution Width 14.9 % (9.3-17.3); White Blood Count 3.8 T/CUMM (4-12)
[2022-06-14 05:20] LABS: INR 1.1; PT Patient Result 12.3 SECS (10.1-12.1); Partial Thromboplastin Time 34.4 SECS (23.7-32.9)
[2022-06-14 05:31] LABS: Blood Urea Nitrogen 12 MG/DL (7-18); Calcium 8.4 MG/DL (8.5-10.1); Carbon Dioxide 29 MMOL/L (21-32); Chloride 106 MMOL/L (98-107); Glucose 86 MG/DL (74-106); Osmolality,Calculated 279.3 MOS/KG (273-304); Potassium 3.5 MMOL/L (3.5-5.1); Sodium 141 MMOL/L (136-145)
[2022-06-14] MEDS: VALSARTAN 80 MG TABLET PO SCH (08:29)
[2022-06-14] MEDS: carvediloL 3.125 MG TABLET PO SCH ×2 (08:29→20:36)
[2022-06-14] MEDS: APIXABAN 5 MG TABLET PO SCH ×2 (08:29→20:36)
[2022-06-14] MEDS: ASPIRIN EC 325 MG TABLET PO SCH (08:29)
[2022-06-14] MEDS: FUROSEMIDE 40 MG TABLET PO SCH (08:30)
[2022-06-14] MEDS: PANTOPRAZOLE 40 MG TABLET PO SCH (08:30)
[2022-06-14] MEDS: POTASSIUM CHLORIDE 20 MEQ TABLET PO SCH (08:30)
[2022-06-14] MEDS ORDERED: LORazepam 1 MG TABLET PO PRN (13:23)
[2022-06-14] MEDS: DAPAGLIFLOZIN 10 MG TABLET PO SCH (20:36)
[2022-06-15] MEDS: POTASSIUM CHLORIDE 20 MEQ TABLET PO SCH (08:47)
[2022-06-15] MEDS: FUROSEMIDE 40 MG TABLET PO SCH (08:47)
[2022-06-15] MEDS: carvediloL 3.125 MG TABLET PO SCH ×2 (08:47→20:46)
[2022-06-15] MEDS: MULTIVITAMIN (CENTRUM) TABLET PO SCH (08:47)
[2022-06-15] MEDS: VALSARTAN 80 MG TABLET PO SCH (08:47)
[2022-06-15] MEDS: THIAMINE 100 MG TABLET PO SCH (08:47)
[2022-06-15] MEDS: APIXABAN 5 MG TABLET PO SCH ×2 (08:47→20:46)
[2022-06-15] MEDS: ASPIRIN EC 325 MG TABLET PO SCH (08:47)
[2022-06-15] MEDS: PANTOPRAZOLE 40 MG TABLET PO SCH (08:47)
[2022-06-15] MEDS: FOLIC ACID 1 MG TABLET PO SCH (08:47)
[2022-06-15 13:05] LABS: Calcium 8.6 MG/DL (8.5-10.1); Potassium 3.7 MMOL/L (3.5-5.1)
[2022-06-15] MEDS ORDERED: LACTATED RINGERS 1,000 ML IV SCH (13:30)
[2022-06-15] MEDS: DAPAGLIFLOZIN 10 MG TABLET PO SCH (20:46)
[2022-06-16] MEDS: guaiFENesin 200 MG/10 ML UDCUP PO PRN ×2 (02:00→06:08)
[2022-06-16 05:22] LABS: Basophils % 0.4 % (0.0-0.8); Eosinophils # 0.1 10*3/uL (0.0-0.87); Eosinophils % 1.2 % (0.00-10.9); Hematocrit 42.2 VOL% (42.0-52.0); Hemoglobin 13.4 GM/DL (14.0-18.0); Immature Granulocytes % 0.2 %; Immature Granulocytes Absolute 0.01 #; Lymphocytes % 20.5 % (21.2-54.2); Mean Corpuscular HGB Conc 31.8 GM/DL (32-36); Mean Corpuscular Volume 98.1 FL (87-102); Monocytes # 0.5 10*3/uL (0.11-0.8); Monocytes % 9.9 % (1.7-12.7); Neutrophils % 67.8 % (38.7-73.9); Platelet Count 186 T/CUMM (130-400); White Blood Count 4.8 T/CUMM (4-12)
[2022-06-16 05:42] LABS: Calcium 8.5 MG/DL (8.5-10.1); Osmolality,Calculated 282.1 MOS/KG (273-304); Potassium 4.3 MMOL/L (3.5-5.1)
[2022-06-16] MEDS: POTASSIUM CHLORIDE 20 MEQ TABLET PO SCH (08:52)
[2022-06-16] MEDS: MULTIVITAMIN (CENTRUM) TABLET PO SCH (08:52)
[2022-06-16] MEDS: carvediloL 3.125 MG TABLET PO SCH (08:52)
[2022-06-16] MEDS: VALSARTAN 80 MG TABLET PO SCH (08:52)
[2022-06-16] MEDS: FOLIC ACID 1 MG TABLET PO SCH (08:52)
[2022-06-16] MEDS: ASPIRIN EC 325 MG TABLET PO SCH (08:52)
[2022-06-16] MEDS: PANTOPRAZOLE 40 MG TABLET PO SCH (08:52)
[2022-06-16] MEDS: APIXABAN 5 MG TABLET PO SCH (08:52)
[2022-06-16] MEDS: THIAMINE 100 MG TABLET PO SCH (08:52)
[2022-06-16] MEDS: FUROSEMIDE 40 MG TABLET PO SCH (08:52)
[2022-06-16 12:15] VITALS: BP 117/75
== END 2022-06-16 13:15 | disposition home or self-care (01) ==
LOC: N.ED 19:22 → N.TELEN 19:22 → SUATTDRO 21:45 → N.TELEN 06-14 00:30 → SUATTDRO 06-15 15:55
PROVIDERS: ADMIT Internal Medicine; ATTEND Internal Medicine